=== PATIENT | female | born 1995 | race Hispanic/Latino ===

== ENCOUNTER 2019-05-08 06:24 | Inpatient (IN) | payer SELFPAY ==
[~2019-05-08] VITALS: Ht 160 cm; Wt 86.2 kg
[2019-05-08] VITALS (28 sets, daily range): BP systolic 102–138; BP diastolic 45–77
[2019-05-08] MEDS ORDERED: SODIUM CHLORIDE 0.9% 500ML 500 ML IV ONE (06:52)
[2019-05-08] MEDS ORDERED: SODIUM CHLORIDE 0.9% 1000ML 1,000 ML IV ONE (06:52)
[2019-05-08] MEDS ORDERED: KETOROLAC TROMETHAMINE 30MG/ML ONE ×2 (06:52→19:02)
[2019-05-08] MEDS ORDERED: ONDANSETRON HCL 4 MG/2 ML VIAL ONE ×2 (06:52→19:03)
[2019-05-08 07:20] LABS: EOSINOPHILS % (AUTO) 0.4 % (0.0-8.0); LYMPHOCYTES % (AUTO) 14.5 % (21.0-51.0); MEAN CORPUSCULAR HEMOGLOBIN 26.9 pg (27.0-33.0); MEAN CORPUSCULAR HGB CONC 32.9 g/dL (32.0-36.0); MEAN CORPUSCULAR VOLUME 81.7 fL (79-99); MONOCYTES % (AUTO) 3.2 % (3.0-13.0); NEUTROPHILS % (AUTO) 80.9 % (40.0-77.0); NUCLEATED RED BLOOD CELLS 0.1 % (0.0-0.19); PLATELET COUNT (AUTO) 350 K/uL (130-400); RED BLOOD CELL COUNT(AUTO) 4.28 MIL/uL (4.00-5.50); RED CELL DISTRIBUTION WIDTH 15.3 % (11.0-15.5); WHITE BLOOD COUNT (AUTO) 9.5 K/uL (4.8-10.8)
[2019-05-08 07:24] LABS: APPEARANCE,URINE Clear (CLEAR); BILIRUBIN,URINE Negative (NEGATIVE); COLOR,URINE Yellow (YELLOW); GLUCOSE, URINE (UA) Negative (NEGATIVE); KETONES,URINE 15 mg/dL (NEGATIVE); LEUKOCYTE ESTERASE ,URINE Negative (NEGATIVE); NITRATE,URINE Negative (NEGATIVE); OCCULT BLOOD,URINE Negative (NEGATIVE); PH,URINE 6.5 (5.0-8.0); PROTEIN,URINE Negative (NEGATIVE); UROBILINOGEN,URINE 0.2 mg/dL (0.2-1.0)
[2019-05-08 07:35] LABS: HCG,QUAL RESULT NEGATIVE (NEGATIVE)
[2019-05-08 07:36] LABS: CREATININE 0.8 mg/dL (0.5-1.5); POTASSIUM 3.1 mmol/L (3.5-5.1)
[2019-05-08] MEDS ORDERED: MORPHINE SULFATE 2 MG/ML 1ML SYG ONE ×4 (07:38→12:55)
[2019-05-08 07:42] LABS: ALBUMIN 3.8 g/dL (3.5-5.0); BACTERIA,URINE Rare /HPF (None Seen); BILIRUBIN,TOTAL 0.2 mg/dL (0.2-1.0); RBC,URINE 0-1 /HPF (0-1); SQUAMOUS EPITHELIAL CELL,UR Rare /HPF (0-2); TOTAL PROTEIN, SERUM 8.3 g/dL (6.0-8.3); WBC,URINE 0-1 /HPF (0-1)
--- NOTE | 2019-05-08 11:00 | NUR ---
REPORT RECEIVED FROM MINISTERIO CA RN ED AND PATIENT WAS TRANSFERED TO UNIT AT THIS TIME. PATIENT ORIENTED TO UNIT AND HT AND WEIGHT OBTAINED AND ALLERGIES. PATIENT CAME COMPLAINING OF PAIN AND DENIES ANY NAUSEA OR VOMITING. PATIENT INSTRUCTED ON NEED TO OBTAIN HISTORY AND THEN WILL MEDICATE. PIV IS TO RAC WITH 20G. NS TO BE INFUSED AT 200CC/HR. LEIDY HOSE APPLIED AND PATIENT WAS GIVEN CALL LIGHT TO CALL FOR ASSISTANCE NEEDED. VERBALIZED UNDERSTANDING ALL INSTRUCTIONS OBTAINED.
--- NOTE | 2019-05-08 11:55 | NUR ---
DR. BECKHAM CALLED AND INFORMED PATIENT BEING ADMITTED TO AND CT SCAN RESULTS GIVEN TO DR. BECKHAM. NO NEW ORDERS GIVEN. PATIENT TO REMAIN NPO UNTIL FURTHER ASSESSMENT IS DONE. PATIENT INFORMED OF DR. BECKHAM TO COME SEE HER AND THEN PLAN OF CARE WILL BE DISCUSSED WITH HER. PATIENT VERBALIZED UNDERSTANDING AND HER DAD IS AT BEDSIDE AND HAD NO QUESTIONS.
[2019-05-08] MEDS ORDERED: MORPHINE SULFATE 2 MG/ML 1ML SYG IVP PRN (12:30)
[2019-05-08] MEDS ORDERED: MORPHINE SULFATE 4 MG/1ML SYG IV PRN (12:30)
[2019-05-08] MEDS ORDERED: LORA-705 PO (12:53)
--- NOTE | 2019-05-08 13:30 | NUR ---
DR. BECKHAM ROUNDING AND SPOKE TO PATIENT AND HER FATHER ABOUT CT FINDINGS AND SURGICAL PROCEDURE REQUIRED AND OPTIONS AVAILABLE FOR PLAN OF CARE. PATIENT INDICATED AFTER LONG EXPLANATION OF FINDINGS AND POSSIBLITIES ON PLAN OF CARE TO HAVE SURGICAL PROCEDURE DONE. STATES HAVING HAD SEVERE PAIN BEFORE AND DOES NOT TOLERATE PAIN WELL.
--- NOTE | 2019-05-08 14:30 | NUR ---
CONSENT OBTAIN FOR DIAGNOSTIC LAPAROSCOPY POSSIBLE LAPAROTOMY; REMOVAL OF OVARIAN MASS POSSIBLE SALPINGECTOMY AND INDICATED PROCEDURES.
[2019-05-08] MEDS: SODIUM CHLORIDE 0.9% 1000ML 1,000 ML IV SCH ×3 (14:45→23:09)
[2019-05-08] MEDS ORDERED: PROPOFOL 10 MG/ML 20ML VIAL IV ONE (16:59)
[2019-05-08] MEDS ORDERED: LIDOCAINE PF 2% 5ML ABBOJECT ONE (16:59)
[2019-05-08] MEDS ORDERED: ROCURONIUM 10MG/1ML SYR 10 MG/ML ML ONE (17:00)
--- NOTE | 2019-05-08 17:00 | NUR ---
DR. BECKHAM WAS CALLED THAT OR WILL BE READY FOR HIS SURGERY IN 15 TO 20 MINUTES. OR NURSE IN TO TRAY WORKER PATIENT AND PATIENT WAS TAKEN VIA BED TO OR IN STABLE CONDITION. FATHER ACCOMPANIED PATIENT TO HOLDING AREA.
[2019-05-08] MEDS ORDERED: FENTANYL CITRATE PF 50 MCG/1 ML 2ML VIAL ONE ×2 (17:01→19:08)
[2019-05-08] MEDS ORDERED: CEFAZOLIN SODIUM 1 GM VIAL ONE (17:31)
[2019-05-08] MEDS ORDERED: EPHEDRINE SULFATE 50 MG/ML AMPULE ONE (18:29)
[2019-05-08] MEDS ORDERED: NEOSTIGMINE 5MG/5ML SYR IV ONE (19:02)
[2019-05-08] MEDS ORDERED: MEPERIDINE-PF 25 MG/ML SYG ONE ×3 (19:02→20:10)
[2019-05-08] MEDS ORDERED: GLYCOPYRROLATE 1 MG/5 ML SYRINGE ONE (19:02)
--- NOTE | 2019-05-08 20:40 | NUR ---
Received patient from PACU: Patient received from PACU via bed accompanied by Ceasar Cruz RN. Patient on nasal Cannula Oxygen on at 2 L/min. Peripheral IV on her right antecubital 20 gauge. Bandaide x3 on her abdomen intact. Plan of care discussed with patient and Family, they verbalizes understanding.
[2019-05-08] MEDS ORDERED: BISACODYL 10 MG SUPP.RECT RC PRN (21:45)
[2019-05-08] MEDS ORDERED: PROMETHAZINE HCL 25 MG/ML 1ML AMPULE IM PRN ×2 (21:45)
[2019-05-08] MEDS ORDERED: DOCUSATE SODIUM 100 MG CAP PO PRN (21:45)
--- NOTE | 2019-05-08 21:45 | NUR ---
Dr. Villanueva visited patient: dr. Villanueva at bedside discussed Plan of care with the patient. She verbalizes understanding
--- NOTE | 2019-05-08 22:40 | NUR ---
patient up: Patient assisted to the bathroom to void, denies any dizziness. She was able to pee without difficulty with clear yellow urine. She was back to bed after 10 minutes.
[2019-05-08] MEDS ORDERED: CALDOLOR 800MG+NS 250ML 250 ML IV ONE (22:53)
--- NOTE | 2019-05-08 23:10 | NUR ---
Intravenous Infusion infusing was Lactated Ringers:
[2019-05-09 00:25] VITALS: BP 99/49
[2019-05-09] MEDS: SODIUM CHLORIDE 0.9% 1000ML 1,000 ML IV SCH (02:27)
[2019-05-09 04:15] VITALS: BP 90/55
[2019-05-09] MEDS ORDERED: ONDANSETRON HCL 4 MG/2 ML VIAL IVP PRN (05:15)
[2019-05-09] MEDS ORDERED: MEPERIDINE-PF 25 MG/ML SYG IVP PRN (05:15)
[2019-05-09] MEDS ORDERED: METOCLOPRAMIDE 10 MG/2 ML VIAL IVP PRN (05:15)
[2019-05-09] MEDS ORDERED: FENTANYL CITRATE PF 50 MCG/1 ML 2ML VIAL IVP PRN (05:15)
[2019-05-09] MEDS ORDERED: PROMETHAZINE HCL 25 MG/ML 1ML AMPULE IM PRN (05:15)
[2019-05-09] MEDS ORDERED: CALDOLOR 800MG+NS 250ML 250 ML IV SCH (05:45)
[2019-05-09 06:37] LABS: HEMATOCRIT 28.1 % (36-48); MEAN CORPUSCULAR HEMOGLOBIN 27.6 pg (27.0-33.0); MEAN CORPUSCULAR HGB CONC 33.3 g/dL (32.0-36.0); MEAN CORPUSCULAR VOLUME 82.9 fL (79-99); NUCLEATED RED BLOOD CELLS 0.1 % (0.0-0.19); PLATELET COUNT (AUTO) 276 K/uL (130-400); RED BLOOD CELL COUNT(AUTO) 3.39 MIL/uL (4.00-5.50); RED CELL DISTRIBUTION WIDTH 15.5 % (11.0-15.5)
[2019-05-09] MEDS ORDERED: FLU VACC QS2019-20 36MOS UP/PF 60 MCG/0.5 ML ML IM ONE (07:30)
[2019-05-09 07:44] VITALS: BP 101/53
[2019-05-09] MEDS ORDERED: FLU VACC QS2019-20 36MOS UP/PF 60 MCG/0.5 ML ML IM SCH (09:00)
[2019-05-09] MEDS: SIMETHICONE 80 MG TAB.CHEW PO PRN ×2 (09:34→16:56)
--- NOTE | 2019-05-09 11:31 | NUR ---
DC PLAN VISITED WITH PATIENT. PATIENT LIVES WITH PARENTS. INDEPENDENT ABLE TO PERFORM ADL'S. PATIENT HAS NO SERVICES OR DME'S. FEELS SAFE TO RETURN HOME. Addendum: 05/09/19 at 1133 by ALEXX MATA RN CM Amended: Links added.
[2019-05-09] MEDS ORDERED: ACETAMINOPHEN 325 MG TAB PO PRN (13:00)
[2019-05-09] MEDS ORDERED: ACETAMINOPHEN-CODEINE 300/30MG TAB PO PRN (13:00)
--- NOTE | 2019-05-09 13:00 | NUR ---
SPOKE WITH DR. BECKHAM TO NOTIFY THAT PT IS C/O PAIN AND REQUESTING TYLENOL. NEW ORDERS RECEIVED.
[2019-05-09] MEDS ORDERED: IBUPROFEN 600 MG TABLET PO PRN (13:15)
--- NOTE | 2019-05-09 13:26 | NUR ---
ROUNDING AT THIS TIME. DISCHARGE POC DISCUSSED. PT MAY DISCHARGE HOME ONCE SHE HAS AMBULATED THE WALKER AND PASSING FLATUS.
--- NOTE | 2019-05-09 14:15 | NUR ---
PT AMBULATING IN HALLWAY. NO C/O PAIN OR DIZZINESS REPORTED. GAIT IS STEADY.
[2019-05-09 16:00] VITALS: BP 94/50
--- NOTE | 2019-05-09 18:20 | NUR ---
PT REPORTS PASSING FLATUS AND HAVING A BOWEL MOVEMENT.
--- NOTE | 2019-05-09 18:30 | NUR ---
DISCHARGE INSTRUCTIONS READ AND EXPLAINED TO PATIENT. REVIEWED INCISION CARE WITH PT. PRESCRIPTION FOR IBUPROFEN 600MG AND TYLENOL #3 HANDED TO PT. QUESTIONS INVITED AND ANSWERED. PT VOICED UNDERSTANDING.
--- NOTE | 2019-05-09 18:49 | NUR ---
PT LEFT UNIT VIA WHEELCHAIR WITH BELONGINGS IN HAND. PERSONAL VEHICLE USED FOR TRANSPORTATION. NO COMPLAINTS OR CONCERNS ADDRESSED FROM PT ON DISCHARGE.
== END 2019-05-09 18:50 | disposition home or self-care (01) | DRG 743 ==
LOC: EDH 06:24 → EDHIP 06:25 → OBSVTOIN 06:25 → WSH 10:36
PROVIDERS: ADMIT Obstetrics & Gynecology; ATTEND Obstetrics & Gynecology
PROC: 3E02340 Introduction of Influenza Vaccine into Muscle, Percutaneous Approach (ICD-10-PCS; 2019-05-08)
PROC: 0UB14ZZ Excision of Left Ovary, Percutaneous Endoscopic Approach (ICD-10-PCS; principal; 2019-05-08 17:35)
PROC: 0UB64ZZ Excision of Left Fallopian Tube, Percutaneous Endoscopic Approach (ICD-10-PCS; 2019-05-08 17:35)
DX: N83.512 Torsion of left ovary and ovarian pedicle (principal); Z23 Encounter for immunization
CPT/HCPCS: 36415; 74176; 80053; 81001; 81025; 85025; 85027; 88305; A4344; A4351; G0378; J0690; J1741; J1885; J2001; J2175; J2405; J2704; J2710; J3010; J3490; J7030; J7040; Q2035